=== PATIENT | female | born 1995 | race Asian ===

== ENCOUNTER 2024-03-04 10:04 | Emergency (ER) | payer SELFPAY ==
[~2024-03-04] VITALS: Ht 177.8 cm; Wt 54.3 kg
[2024-03-04 10:08] VITALS: BP 113/67; PULSE 89; RESP 14; TEMP 99.4; O2SAT 95
[2024-03-04] MEDS ORDERED: OFLO5DRO RIGHTEYE (11:19)
[2024-03-04] MEDS ORDERED: KETO5DRO RIGHTEYE (11:19)
[2024-03-04] MEDS: TETRACAINE 0.5% 4 ML OPHTHALMIC DROPS RIGHTEYE ONE (11:34)
== END 2024-03-04 11:38 | disposition home or self-care (01) ==
LOC: ER 10:05
DX: S05.01XA Injury of conjunctiva and corneal abrasion without foreign body, right eye, initial encounter (principal); X58.XXXA Exposure to other specified factors, initial encounter; Y93.89 Activity, other specified; Y92.89 Other specified places as the place of occurrence of the external cause; Y99.8 Other external cause status
CPT/HCPCS: 99283